=== PATIENT | female | born 1985 | race African-American/Black ===

== ENCOUNTER 2024-05-18 12:42 | Emergency (ER) | payer MEDICAID, SELFPAY ==
[2024-05-18 12:47] VITALS: BP 136/74; PULSE 98; O2SAT 96
[2024-05-18 12:51] VITALS: BP 111/72; PULSE 89; RESP 18; TEMP 36.8; O2SAT 96; BMI 42.2
--- NOTE | 2024-05-18 13:04 | ECG_ITS ---
Test Reason : QTC Blood Pressure : / mmHG Vent. Rate : 076 BPM Atrial Rate : 076 BPM P-R Int : 158 ms QRS Dur : 084 ms QT Int : 356 ms P-R-T Axes : 039 005 032 degrees QTc Int : 400 ms Normal sinus rhythm Normal ECG No previous ECGs available Referred By: Quin Panchal Electronically Signed By:DANIELA YANG
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
[2024-05-18 13:20] LABS: MANUAL DIFF FLAG NO
[2024-05-18 13:21] LABS: Basophils Percent Auto 0.5 % (0-2); Eosinophils Percent Auto 0.7 % (0-4); Hematocrit 38.1 % (37.0-47.0); Imm Gran Abs Auto 0.02 X10*3/uL (0.00-0.03); Imm Gran Pct Auto 0.4 % (0.0-0.4); Lymphocytes Percent Auto 18.7 % (20-40); Mean Corpuscular HGB Conc 34.1 g/dl (31.0-35.0); Mean Corpuscular Volume 90.9 fL (80.0-98.0); Monocytes Absolute Auto 0.5 X10*3/uL (0.1-1.2); Neutrophils Absolute Auto 3.9 x10*3/uL (2.0-8.3); Neutrophils Percent Auto 70.7 % (45-73); Platelet Count 353 X10*3/uL (160-400); Red Blood Count 4.19 X10*6/uL (4.20-5.50); White Blood Count 5.6 X10*3/uL (4.8-10.8)
[2024-05-18 13:42] LABS: Alanine Aminotransferase 21 U/L (0-31); Albumin Level 4.4 g/dL (3.5-5.0); Alkaline Phosphatase 81 U/L (39-117); Anion Gap 13 (12-20); Aspartate Amino Transferase 20 U/L (5-31); Bilirubin Direct 0.1 mg/dL (0.0-0.5); Bilirubin Total 0.3 mg/dL (0.0-1.0); Blood Urea Nitrogen 11 mg/dL (9-16); Calcium 10.2 mg/dL (8.4-10.2); Carbon Dioxide 28 mmol/L (22-29); Chloride 102 mmol/L (96-108); Creatinine Clr Calc Pharmacy 91.4; Estimated Glomerular Filt Rate > 60; Glucose Random 105 mg/dL (60-115); Magnesium 2.1 mg/dL (1.6-2.6); Potassium 4.1 mmol/L (3.3-5.1); Sodium 139 mmol/L (135-145); Total Protein 8.2 g/dL (6.5-8.0)
[2024-05-18 13:44] LABS: HCG Quantitative < 2 mIU/mL
[2024-05-18 15:01] VITALS: BP 114/75; PULSE 73; RESP 16; TEMP 35.8; O2SAT 99
[2024-05-18 17:50] VITALS: BP 114/75; PULSE 73; RESP 16; TEMP 35.8; O2SAT 99
== END 2024-05-18 17:51 ==
PROVIDERS: Emergency Provider Emergency Medicine; PCP Internal Medicine
DX: G24.09 Other drug induced dystonia (principal); R68.84 Jaw pain; F12.90 Cannabis use, unspecified, uncomplicated; I45.81 Long QT syndrome; F22 Delusional disorders; Z79.899 Other long term (current) drug therapy
CPT/HCPCS: 36415; 80048; 80076; 82550; 83735; 84702; 85025; 93005; 99283; 99285